=== PATIENT | male | born 1970 | race Caucasian/White ===

== ENCOUNTER 2021-08-30 14:26 | Outpatient (CLI) | payer OTHER, SELFPAY ==
--- NOTE | ~2021-08-30 | MR_ITS ---
EXAMINATION: MR shoulder LT wo con DATE: 08/30/2021 15:37 INDICATION: Left shoulder sprain TECHNIQUE: Magnetic resonance imaging (MRI) of the left shoulder was performed without intravenous co ntrast. Sequences included axial PD-weighted FS FSE, coronal oblique PD-weighted FS FSE, coronal obli que T2-weighted FS FSE, sagittal PD-weighted FS FSE, and sagittal T1-weighted SE. COMPARISON: None. FINDINGS: Coracoacromial arch: The acromion undersurface is flat in morphology (type I). The coracoacromial ligament is normal. Mode rate acromioclavicular osteoarthritis. Rotator cuff: Supraspinatus and moderate infraspinatus tendinopathy. Tiny intrasubstance tear at the conjoined port ion of the supraspinatus and infraspinatus tendons measuring 1-2 mm in maximal dimensions. The teres minor tendon is normal. Mild to moderate subscapularis tendinopathy with additional small partial-thi ckness articular sided tear at the superomedial margin of the lesser tuberosity footplate which measu res approximately 3-4 mm AP and medial collateral and involving no greater than one third of the tend on thickness. Normal rotator cuff muscle bulk and signal. Biceps tendon, glenoid labrum and glenohumeral cartilage: Moderate tendinopathy of the intra-articular long head biceps tendon with longitudinal split tear in the extra articular portion of the tendon at the intertubercular groove. Degeneration of the superior to posterior superior glenoid labrum including the biceps labral complex which extends anteriorly fr om the 12:30 to the 10:00 of the posterior superior labrum. Cartilage thickness appears relatively pr eserved. There is subarticular cystlike changes across inferior glenoid suggesting otherwise occult o verlying chondral fissuring. Cartilage at the humeral head appears normal. Fluid: Physiologic amount of fluid in the glenohumeral joint and biceps tendon sheath. No loose osteochondra l bodies. Mild increased fluid signal in the subacromial/subdeltoid bursa consistent with very mild b ursitis. Bones: Normal marrow signal with no edema, fracture or abnormal marrow replacing process. IMPRESSION: 1. Mild to moderate subscapularis tendinopathy with small mild articular sided tear at the superomedi al lesser tuberosity footplate of the tendon. 2. Mild supraspinatus and moderate infraspinatus tendinopathy with tiny intrasubstance tear at the fo otplate of the conjoined portion of the tendons. 3. Moderate tendinopathy of the intra-articular long head biceps tendon with longitudinal split tear at the extra articular portion of the tendon. 4. Degeneration of the superior labrum/biceps labral complex extending posteriorly to the posterior s uperior labrum. 5. Subarticular cystic changes at the inferior glenoid suggesting otherwise occult overlying high-gra de chondromalacia. 6. Moderate acromioclavicular osteoarthritis with minimal underlying subacromial/subdeltoid bursitis. Reviewed, dictated and finalized at location A. SE[employer] MARKETING STRATEGIST IMPRESSION: 1. Mild to moderate subscapularis tendinopathy with small mild articular sided tear at the superomedial lesser tuberosity footplate of the tendon. 2. Mild supraspinatus and moderate infraspinatus tendinopathy with tiny intrasu bstance tear at the footplate of the conjoined portion of the tendons. 3. Moderate tendinopathy of the intra-articular long head biceps tendon with lo ngitudinal split tear at the extra articular portion of the tendon. 4. Degeneration of the superior labrum/biceps labral complex extending posterio rly to the posterior superior labrum. 5. Subarticular cystic changes at the inferior glenoid suggesting otherwise occ ult overlying high-grade chondromalacia. 6. Moderate acromioclavicular osteoarthritis with minimal u
== END 2021-08-30 14:27 | disposition home or self-care (01) ==
LOC: ANHIMG 14:36
PROVIDERS: PCP Nurse Practitioner; Visit Provider Nurse Practitioner
DX: S43.402A Unspecified sprain of left shoulder joint, initial encounter (principal); M19.012 Primary osteoarthritis, left shoulder; M75.52 Bursitis of left shoulder
CPT/HCPCS: 73221

== ENCOUNTER 2021-12-19 07:30 | Outpatient (CLI) | payer OTHER, SELFPAY ==
--- NOTE | ~2021-12-19 | MR_ITS ---
EXAMINATION: MR elbow LT wo con DATE: 12/19/2021 08:45 INDICATION: Left elbow pain TECHNIQUE: Magnetic resonance imaging (MRI) of the left elbow was performed without intravenous contr ast. Sequences included coronal, axial, and sagittal PD-weighted FS FSE and coronal, axial, and sagit chepe PD-weighted FSE. COMPARISON: None FINDINGS: Osseous/other: Normal alignment. Normal marrow signal with no marrow edema, fracture, osteochondral lesion or abnor mal marrow replacing process. There is mild osteoarthritis with nonuniform mild partial-thickness car tilage loss and tiny marginal osteophytes. Tendons: Small enthesophyte at the olecranon attachment of the otherwise normal triceps tendon. Moderate tendi nopathy of the distal brachialis tendon without discrete tear. Moderate tendinopathy of the biceps br achii tendon with high-grade partial if not complete tear of the distal biceps brachii tendon which o ccurs near its radial tuberosity insertion. There is some residual frayed tendon material attached to the footplate where there are also some small enthesophytes. The proximal and distal tear margins ar e frayed making quantitative assessment of degree of retraction difficult, likely no greater than 1 c m. There is intervening amorphous tendon material of doubtful functional integrity. Minimal amount of fluid likely representing hematoma along the torn tendon. Additional tendinopathy without discrete t ear, mild at the medial epicondylar origin of the common flexor tendon wad and moderate severity at t he lateral epicondylar origin of the common extensor tendon wad. Ligaments: The lateral collateral ligament complex is normal. There is thickening of the medial collateral ligam ent component of the medial collateral ligament complex consistent with scarring related to chronic s prain without surrounding edema to suggest acute injury. The annular ligament and lateral ulnar colla teral ligament portion of the lateral collateral ligament complex are normal. Cubital tunnel: Cubital tunnel is unremarkable with normal signal and caliber of the ulnar nerve. Fluid: Physiologic amount of fluid the elbow joint. IMPRESSION: 1. Severe tendinopathy with high-grade partial if not complete tear of the distal biceps brachii tend on near its radial tuberosity insertion. 2. Tendinopathy without discrete tears, moderate at the brachialis tendon and common extensor tendon wad and mild at the common flexor tendon wad. 3. Scarring consistent with chronic sprain of the lateral collateral ligament component of the latera l collateral ligament complex. 4. 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 Reviewed, dictated and finalized at location A. E[employer] READING TUTOR IMPRESSION: 1. Severe tendinopathy with high-grade partial if not complete tear of the dist al biceps brachii tendon near its radial tuberosity insertion. 2. Tendinopathy without discrete tears, moderate at the brachialis tendon and c ommon extensor tendon wad and mild at the common flexor tendon wad. 3. Scarring consistent with chronic sprain of the lateral collateral ligament c omponent of the lateral collateral ligament complex. 4. 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
== END 2021-12-19 07:31 | disposition home or self-care (01) ==
DX: S53.402A Unspecified sprain of left elbow, initial encounter (principal); X58.XXXA Exposure to other specified factors, initial encounter; M19.022 Primary osteoarthritis, left elbow
CPT/HCPCS: 73221